=== PATIENT | female | born 1965 | race Caucasian/White ===

== ENCOUNTER 2017-05-05 11:28 | Emergency (ER) | payer OTHER ==
[2017-05-05 11:39] VITALS: RESP 18; TEMP 98; O2SAT 97
--- NOTE | 2017-05-05 12:05 | EDPHY ---
H & P Time Seen by Provider: 05/05/17 11:33 HPI/ROS: This patient presents with leg injury. She drove herself here by private car complaining of 5/10 left leg pain from an injury playing soccer 2 days prior to arrival when she slammed into another player's knee. She reports the location of the injury as proximal lateral leg with associated ecchymosis and swelling. The pain worsens with walking. She developed posterior calf pain with his injury as well and states that the posterior calf pain is nearly as severe as the lateral leg pain. She reports worsening of the calf pain with plantar flexion of her foot. She had ibuprofen this morning prior to arrival with minimal improvement. She notes no other exacerbating or alleviating factors. ROS: Musculoskeletal: No other injuries Neuro: No numbness or tingling Cardiovascular: No chest pain Pulmonary: No dyspnea 5 point ROS is otherwise negative. Past Medical/Surgical History: Otherwise healthy. No history of DVT Smoking Status: Never smoked Physical Exam: Physical Exam Vital signs are normal. General: No acute distress HEENT: Atraumatic. Eyes: Pupils equal and react to light. Extraocular motions are intact. Lungs: No respiratory distress. Cardiac: Brisk capillary refill is intact throughout. Pulses are 2+ and symmetric in the affected extremity. Skin: No rash or pallor. Extremities: Atraumatic normal except for left lower extremity Left lower extremity: Patient has significant ecchymosis and swelling to the lateral proximal leg with associated lateral tenderness. She also has posterior calf tenderness extends the popliteal fossa. Positive Homans. Mild ecchymosis to the patella but no associated knee tenderness or swelling. She retains full range of motion at the knee without pain. With ligamentous stress testing-Nick's, varus valgus stress no knee pain. Neuro: Alert with no sensorimotor deficits in the affected extremity. Initial differential diagnosis: Traumatic hematoma, fibular fracture, Tibial fx , posttraumatic DVT Constitutional: Initial Vital Signs Temperature (C) 36.6 C 05/05/17 11:35 Heart Rate 77 05/05/17 11:35 Respiratory Rate 18 05/05/17 11:35 Blood Pressure 129/86 H 05/05/17 11:35 O2 Sat (%) 97 05/05/17 11:35 O2 Delivery Mode Room Air Allergies/Adverse Reactions: No Known Allergies Allergy (Unverified 05/05/17 11:35) Home Medications: Medication Instructions Recorded AMELIA 05/05/17 MDM/Departure - MDM Diagnostics: Knee x-ray: Tibial plateau fracture-lateral plateau without significant displacement or depression. Tib-fib x-ray: No fibular fracture-tibial plateau fracture as noted above. Imaging: Discussed imaging studies w/ mechanical press operator Radiologist (Discussed the ultrasound results with Dr. Bright Wing who interpreted the lower extremity Doppler), I viewed and interpreted images myself ED Course/Re-evaluation: Counseled the patient regarding her fracture. The patient declined any other analgesics. At 12:50 p.m. the patient is taken to ultrasound to rule out posttraumatic DVT in the calf. Doppler studies negative for DVT Long leg Orthoglass posterior splint with stirrup is applied by our tech Jj with my supervision. Patient is neurovascularly intact post splint application. Discussion: Nondisplaced tibial plateau fracture without neurovascular compromise or evidence of compartment syndrome. I think that her calf pain is calf strain versus hematoma. No DVT. The patient understands the plan to follow up with Orthopedics this week for further evaluation and likely casting. Answered all of her questions and she is more comfortable with the splint in place at the time of discharge. She understands crutch use and understands that she cannot bear weight on this injury. - Depart Disposition: Home, Routine, Self-Care Clinical Impression: Tibial plateau fracture, left Qualifiers: Encounter type: initial encounter Fracture type: closed Qualified Code(s): S82.142A - Displaced bicondylar fracture of left tibia, initial encounter for closed fracture Condition: Good Instructions: Leg Fracture (ED), Crutch Instructions (ED) Additional Instructions: Diagnoses: Tibial plateau fracture Plan: Keep splint on at all times Elevate the leg when able No weight-bearing on the affected leg. Use crutches for ambulation Continue ibuprofen for pain control. Tylenol in addition if needed. Ice 20 minutes at a time 3 times a day Call Dr. Ma on Saturday to arrange follow-up appointment for this week for further evaluation. Return for recheck if he develops unbearable pain, numbness or other concerns. Referrals: NONE *PRIMARY CARE P,. [Primary Care Provider] - As per Instructions Luzma Ma MD [Medical Doctor] - As per Instructions
[2017-05-05 13:28] VITALS: BP 123/62; PULSE 78
== END 2017-05-05 14:09 | disposition home or self-care (01) ==
LOC: CED 11:28
DX: S82.142A Displaced bicondylar fracture of left tibia, initial encounter for closed fracture (principal); W51.XXXA Accidental striking against or bumped into by another person, initial encounter; Y99.8 Other external cause status; Y93.66 Activity, soccer
CPT/HCPCS: 73564-PO; 73590-PO; 93971-PO

== ENCOUNTER → 2017-05-09 | Outpatient (CLI) | payer OTHER | LOC: CIMAGING 08:10 | PROVIDERS: ATTEND Physician Assistant | DX: S82.252D Displaced comminuted fracture of shaft of left tibia, subsequent encounter for closed fracture with routine healing (principal) | CPT/HCPCS: 73700-PO ==

== ENCOUNTER 2017-05-24 11:54 | Inpatient (IN) | payer OTHER ==
--- NOTE | 2017-05-24 08:49 | GHP ---
[f rep st] PREOP HISTORY AND PHYSICAL DIAGNOSIS: Left knee tibial plateau fracture. PLANNED SURGERY: Left knee ORIF of tibial plateau fracture. HPI: The patient is a 52-year-old female with a history of a soccer injury, in which she was hit fro m the outside of her knee. X-rays were taken at the emergency room. X-rays showed a tibial plateau fracture. Decision was made to obtain a CT scan, which showed a depressed tibial plateau fracture re quiring surgery. After reviewing the risks and benefits of the procedure in detail, the patient opte d for surgical intervention. PAST MEDICAL HISTORY: No significant history. PAST SURGICAL HISTORY: Negative. MEDICATIONS: She takes hydrocodone for pain, and ibuprofen 200 mg three times a day. SOCIAL HISTORY: Occasional alcohol use, no tobacco or drug use. PHYSICAL EXAMINATION: GENERAL: She is alert and oriented. NECK: Supple. CARDIAC: Regular rate, rhythm. Normal S1, S2. No murmurs, rubs, or gallops. PULMONARY: Lungs are clear. ABDOMEN: Normo active bowel sounds, nontender, nondistended. EXTREMITIES: Examination of the left knee shows skin to be intact. There is a moderate effusion. Range of motion was not tested. She is tender over the lateral joint line. Distally she has some calf tenderness and some swelling with intact 2+ pulses d istally and good capillary refill. X-rays and CT scan show a depressed tibial plateau fracture of the anterolateral tibial plateau with involvement of the joint space. ASSESSMENT AND PLAN: Patient presents with a left knee tibial plateau fracture with displacement. A fter reviewing the risks and benefits of surgery were gone over in detail today, she opts for surgica l intervention. She was given Vicodin for postoperative pain control. She will be nonweightbearing for 6 weeks after surgery. /[id number]/MODL
[~2017-05-24 11:54] MED LIST: ACETAMINOPHEN 500 MG TAB PO ONE; ROPIVACAINE 0.2% 80 MG, EPINEPHrine 0.2 MG, KETOROLAC TROMETHAMINE 30 MG, morphINE 10 M... IU ONE; TRANEXAMIC ACID 3,000 MG in NS 50 ML IRR ONE; ceFAZolin 2 GM/DEXTROSE 100 ML IV ONE
[2017-05-24] MEDS ORDERED: LR 1,000 ML IV SCH ×2 (12:00→17:00)
[2017-05-24] MEDS ORDERED: LIDOCAINE 1% 2 ML INJ ID PRN (12:14)
[2017-05-24] MEDS ORDERED: LR 1,000 ML IV ONE (12:14)
[2017-05-24] MEDS ORDERED: BUPIVACAINE 0.5% 30 ML SDV ONE ×2 (12:37→13:00)
[2017-05-24] MEDS ORDERED: POLYMYXIN B SULFATE 500,000 UNIT/10 ML SYR IRR ONE (12:38)
[2017-05-24] MEDS ORDERED: CALCIUM CHLORIDE 1 GM/10 ML INJ ONE (13:11)
[2017-05-24] MEDS ORDERED: THROMBIN (BOVINE) 5,000 UNIT VIAL TP ONE (13:11)
[2017-05-24] MEDS ORDERED: MIDAZOLAM 2 MG/2 ML VIAL IVP ONE (13:33)
--- NOTE | 2017-05-24 13:36 | PDANEPAE ---
ANE History of Present Illness here for tibia orif ANE Past Medical History - Cardiovascular History Hx Hypertension: No Hx Arrhythmias: No Hx Chest Pain: No Hx Coronary Artery / Peripheral Vascular Disease: No Hx CHF / Valvular Disease: No Hx Palpitations: No - Pulmonary History Hx COPD: No Hx Asthma/Reactive Airway Disease: No Hx Recent Upper Respiratory Infection: No Hx Oxygen in Use at Home: No Hx Sleep Apnea: No Sleep Apnea Screening Result - Last Documented: Negative - Neurologic History Hx Cerebrovascular Accident: No Hx Seizures: No Hx Dementia: No - Endocrine History Hx Diabetes: No - Renal History Hx Renal Disorders: No - Liver History Hx Hepatic Disorders: No - Neurological & Psychiatric Hx Hx Neurological and Psychiatric Disorders: No - Cancer History Hx Cancer: No - Congenital Disorder History Hx Congenital Disorders: No - GI History Hx Gastrointestinal Disorders: No - Other Health History Other Health History: BRUISES AND BLEEDS EASILY - Chronic Pain History Chronic Pain: No - Surgical History Prior Surgeries: RT KNEE SCOPE. ANE Review of Systems Review of systems is: negative Review of Systems: - Exercise capacity Exercise capacity: >=4 METS METS (RN): 5 METS ANE Patient History - Allergies Allergies/Adverse Reactions: No Known Allergies Allergy (Unverified 05/05/17 11:35) - Home Medications Home Medications: MOTRIN 05/05/17 [Last Taken 05/22/17] Aspirin 325 mg (*) 05/24/17 [Last Taken 05/19/17] - NPO status NPO Status: no food or drink >8 hours NPO Since - Liquids (Date): 05/24/17 NPO Since - Liquids (Time): 09:00 NPO Since - Solids (Date): 05/23/17 NPO Since - Solids (Time): 21:00 - Anes Hx Anes Hx: no prior problems - Smoking Hx Smoking Status: Never smoked ANE Labs/Vital Signs - Vital Signs Blood Pressure: 116/70 Heart Rate: 69 Respiratory Rate: 14 O2 Sat (%): 94 Height: 170.18 cm Weight: 81.647 kg ANE Physical Exam - Airway Neck exam: FROM Mallampati Score: Class 1 - Pulmonary Pulmonary: no respiratory distress - Cardiovascular Cardiovascular: regular rate and rhythym - ASA Status ASA Status: I ANE Anesthesia Plan Anesthesia Plan: GA w LMA Regional Anesthesia: single shot NB
[2017-05-24] MEDS ORDERED: PROPOFOL/EMULSION 500 MG/50 ML BOTTLE IV ONE ×2 (13:46→14:10)
[2017-05-24] MEDS ORDERED: MIDAZOLAM 2 MG/2 ML VIAL ONE (13:48)
[2017-05-24] MEDS ORDERED: fentaNYL 100 MCG/2 ML INJ ONE (13:49)
[2017-05-24] MEDS ORDERED: HYDROmorphONE/DILAUDID 2 MG/ML INJ ONE (14:25)
[2017-05-24] MEDS ORDERED: BISACODYL 10 MG SUPP PR PRN (16:36)
[2017-05-24] MEDS ORDERED: MAGNESIUM HYDROXIDE 30 ML UDCUP PO PRN (16:36)
[2017-05-24] MEDS ORDERED: PROMETHAZINE HCL 25 MG SUPPR PR PRN (16:36)
[2017-05-24] MEDS ORDERED: oxyCODONE IR 5 MG TAB PO PRN (16:36)
[2017-05-24] MEDS ORDERED: DIAZEPAM 5 MG TAB PO PRN (16:36)
[2017-05-24] MEDS ORDERED: ONDANSETRON DISINTEGRATING 4 MG TAB PO PRN (16:36)
[2017-05-24] MEDS ORDERED: TEMAZEPAM 15 MG CAP PO PRN (16:36)
[2017-05-24] MEDS ORDERED: DIPHENOXYLATE/ATROPINE LOMOTIL 1 TAB PO PRN (16:36)
[2017-05-24] MEDS ORDERED: POLYETHYLENE GLYCOL 3350 17 GM PKT PO PRN (16:36)
[2017-05-24] MEDS ORDERED: ONDANSETRON 4 MG/2 ML VIAL IVP PRN ×2 (16:36→17:01)
[2017-05-24] MEDS ORDERED: METOCLOPRAMIDE 10 MG/2 ML VIAL IVP PRN (16:36)
[2017-05-24] MEDS ORDERED: diphenhydrAMINE 25 MG CAP PO PRN (16:36)
[2017-05-24] MEDS ORDERED: CYCLOBENZAPRINE 10 MG TAB PO PRN (16:36)
[2017-05-24] MEDS ORDERED: LACTULOSE 20 GM/30 ML UDCUP PO PRN (16:36)
[2017-05-24] MEDS ORDERED: TAPENTADOL HCL 50 MG TAB PO PRN (16:36)
[2017-05-24] MEDS ORDERED: PROMETHAZINE HCL 25 MG/ML INJ IVP PRN (16:36)
--- NOTE | 2017-05-24 16:36 | POSTOPPROG ---
Post Op Note Date of Operation: 05/24/17 Surgeon: Luzma Ma Feather Maker: roberto Anesthesiologist: jw Anesthesia: LMA Pre-op Diagnosis: l tib plateau fx Procedure: l tib plateau orif with fluoro Inf/Abcess present in the surg proc area at time of surgery?: No Depth: Deep Incisional (Fascial) EBL: 100-500
[2017-05-24] MEDS ORDERED: HYDROmorphONE/DILAUDID 1 MG/ML INJ IVP PRN (17:01)
[2017-05-24] MEDS ORDERED: fentaNYL 100 MCG/2 ML INJ IVP PRN (17:01)
[2017-05-24] MEDS ORDERED: MEPERIDINE 25 MG/ML SYR IVP PRN (17:01)
[2017-05-24] MEDS ORDERED: ALBUTEROL 3 ML DEYVIAL IH PRN (17:01)
[2017-05-24] MEDS ORDERED: NALOXONE HCL 0.4 MG/ML INJ IVP PRN (17:01)
[2017-05-24] MEDS ORDERED: LR 500 ML IV PRN (17:01)
[2017-05-24] MEDS ORDERED: ONDANSETRON 4 MG/2 ML VIAL ONE (17:04)
--- NOTE | 2017-05-24 17:51 | GOP ---
[f rep st] OPERATIVE REPORT DATE OF OPERATION: 05/24/2017 SURGEON: Luzma Ma MD COMBINATION WELDER APPRENTICE: Herbert Rogers, certified P.A., whose presence was medically necessary. ANESTHESIA: By LMA, with adductor nerve block per surgeon's request. PREOPERATIVE DIAGNOSIS: Left lateral tibial plateau fracture. POSTOPERATIVE DIAGNOSIS: Left lateral tibial plateau fracture. PROCEDURE PERFORMED: Open reduction, internal fixation of left lateral tibial plateau with fluorosco py and bone graft. FINDINGS: INDICATIONS: This is a 52-year-old female who had a slide tackle in soccer strike her in the lateral portion of her left knee. She had pain and swelling afterwards, and was diagnosed with a lateral ti bial plateau fracture. Secondary to multiple cartilaginous pieces being impacted into the metaphysis and a large area being affected, it was decided to do surgery. DESCRIPTION OF PROCEDURE: Patient brought to the operating room after the left side had been identif ied as the correct side by the patient, nurse and physician. She had an adductor nerve block placed, and then placed under general anesthesia using an LMA. Once asleep, tourniquet was placed around th e upper portion of left thigh, and the left lower extremity was sterilely prepped and draped in usual fashion using GSI solution. Once prepped and draped, the limb was exsanguinated, tourniquet inflate d to 250 mmHg. A linear incision was made on the anterior portion of the knee with sharp dissection carried down thr ough the skin and subcutaneous layers with dissection done along with soft tissue laterally in order to gain access to the lateral portion of the knee. Periosteum and fascia overlying the lateral maciel rtment was stripped, gaining access to the anterior compartment. The capsule was dissected off the m eniscus, the meniscus was moved to the side and retracted laterally in order to gain access to the la teral compartment. Due to the delay in getting her to the operating room, there was abundant amount of healing bone in the area. Osteotome had to be used in order to gain access into the fracture plan e, pulling 3 large and multiple small osteochondral fragments out of the metaphysis, and bringing the m up. Once making them level with the rest of the posterior portion of the lateral compartment, bone chips mixed with platelet gel was packed into the metaphyseal hole. Reduction was checked under flu oroscopy, noted to have a good reduction. Therefore, the large cortical anterolateral piece was able to be put back into place, holding the bone chips as well as the osteochondral fragments in place. A 4-hole lateral tibial plateau plate from [employer] was put into place. Fluoroscopy was used to ensur e proper positioning. A cortical screw was placed distally to hold the plate in place. Subsequently , 3 locking screws were placed in the horizontal limb of the plate in order to act as a raft to hold the bone graft and osteochondral fragments up. A diagonal screw was brought through the block, throu gh the plate, to touch the tips of the horizontal screws and a 2nd cortical screw was placed distally into the plate. Position of all the screws then checked under fluoroscopy, was noted to have good r eduction on the AP and lateral projections of the knee. Once this was ensured, the wound was thoroug hly irrigated with antibiotic solution. 2-0 Ethibond was used to repair the meniscus at the capsular level. 0 Vicryl suture was used to close the knee capsule and the fascia overlying the anterior com partment. Plasmagel was injected then around the anterolateral portion of the tibial plateau. Local anesthetic was injected around the periosteum of the anterior compartment of the knee. 0 Vicryl sut ure and 2-0 Vicryl suture were used to close the subcutaneous layers and a 3-0 Monocryl suture in a r unning subcuticular stitch was used to close the skin. The tourniquet had been deflated at 114 minutes. The wound was then dressed with Steri-Strips, Xerof orm, 4 x 4, wrapped in Kerlix. Leg was completely undraped in the operating room, tourniquet removed from the thigh, and an Puneet wrap placed around the knee. She then had the left lower extremity place d in a hinged knee brace locked at 0 degrees. She was woken up, extubated, transferred onto a [facility], and sent to recovery room in good condition. TOURNIQUET TIME: 114 minutes. /[id number]/MODL
[2017-05-24] MEDS: traMADol 50 MG TAB PO SCH (18:59)
[2017-05-24] MEDS: ACETAMINOPHEN 325 MG TAB PO SCH (19:00)
--- NOTE | 2017-05-24 19:18 | POSTANESTH ---
Post Anesthetic Evaluation Cardiovascular Status: Normal, Stable Respiratory Status: Normal, Stable Level of Consciousness/Mental Status: Can Participate in Eval Pain Control: Adequate, Prn Tx Ordered Nausea/Vomiting Control: Adequate, Prn Tx Ordered Complications Possibly Related to Anesthesia: None Noted
[2017-05-24] MEDS: ceFAZolin 2 GM/DEXTROSE 100 ML IV SCH (20:55)
[2017-05-24] MEDS: FAMOTIDINE 20 MG TAB PO SCH (22:29)
[2017-05-24] MEDS: SENNOSIDES/DOCUSATE SODIUM TAB PO SCH (22:30)
[2017-05-25] MEDS: ACETAMINOPHEN 325 MG TAB PO SCH ×3 (00:10→12:07)
[2017-05-25] MEDS: traMADol 50 MG TAB PO SCH ×3 (00:10→12:07)
[2017-05-25 05:21] LABS: HEMATOCRIT 33.1 % (38.0-47.0); HEMOGLOBIN 11.1 g/dL (12.6-16.3)
[2017-05-25] MEDS: ceFAZolin 2 GM/DEXTROSE 100 ML IV SCH (05:51)
[2017-05-25 08:23] VITALS: RESP 14; O2SAT 93
[2017-05-25] MEDS ORDERED: RIVAROXABAN 10 MG TAB PO SCH (09:00)
[2017-05-25] MEDS: SENNOSIDES/DOCUSATE SODIUM TAB PO SCH (09:43)
[2017-05-25] MEDS: FAMOTIDINE 20 MG TAB PO SCH (09:43)
[2017-05-25 12:14] VITALS: BP 100/55; PULSE 80; TEMP 98.1
--- NOTE | 2017-05-25 12:37 | ASMTCMCOM ---
CM Note CM Note Notes: Pt admitted for surgery on L knee. Anticipate pt will DC with no needs. CM available if needs change. Date Signed: 05/25/2017 12:36 PM Electronically Signed By:Bettina Walter LCSW
--- NOTE | 2017-05-25 13:06 | SOAPPROG ---
[facility] Progress Note Assessment/Plan: Assessment: Plan: - d/c home 05/25/17 13:06 Subjective: Pt doing well, ready to go home. Objective: Vital Signs Temp Pulse Resp BP Pulse Ox 36.7 C 80 14 100/55 L 93 05/25/17 12:12 05/25/17 12:12 05/25/17 12:12 05/25/17 12:12 05/25/17 12:12 Laboratory Results 05/25/17 04:28 05/24/17 05/25/17 05/26/17 05:59 05:59 05:59 Intake Total 3050 Output Total 420 Balance 2630 dressing cdi, no evidence of compartment syndrome - Time Spent With Patient Time Spent With Patient: 0 - Pending Discharge Pending Discharge Within 24 Hours: Yes Pending Discharge Within 48 Hours: No Pending Discharge Date: 05/26/17 Pending Discharge Time: 11:00 ICD10 Worksheet Patient Problems: Problems Problem Status Onset Tibial plateau fracture, left Acute
== END 2017-05-25 13:57 | disposition home or self-care (01) | DRG 494 ==
LOC: FSGY 11:54 → F3N 16:36
PROVIDERS: ADMIT Orthopaedic Surgery; ATTEND Orthopaedic Surgery
PROC: BQ1FZZZ Fluoroscopy of Left Lower Leg (ICD-10-PCS; principal; 2017-05-24 13:30)
PROC: 0QUH07Z Supplement Left Tibia with Autologous Tissue Substitute, Open Approach (ICD-10-PCS; principal; 2017-05-24 13:30)
PROC: 0QSH04Z Reposition Left Tibia with Internal Fixation Device, Open Approach (ICD-10-PCS; principal; 2017-05-24 13:30)
PROC: 6A550Z2 Pheresis of Platelets, Single (ICD-10-PCS; principal; 2017-05-24 13:30)
DX: S82.142A Displaced bicondylar fracture of left tibia, initial encounter for closed fracture (principal); W21.02XA Struck by soccer ball, initial encounter; Y93.66 Activity, soccer; Y92.322 Soccer field as the place of occurrence of the external cause
CPT/HCPCS: 97161-GP; 97165-GO; C1713; C1762; J0171; J0690; J1170; J1885; J2250; J2405; J2704; J2795; J3010